=== PATIENT | male | born 1985 | race Caucasian/White ===

== ENCOUNTER 2018-11-05 06:57 | Emergency (ER) | payer SELFPAY ==
[~2018-11-05] VITALS: Ht 180.3 cm; Wt 90.7 kg
[2018-11-05 07:00] VITALS: BP 129/62
[2018-11-05] MEDS ORDERED: LIDOCAINE 1%/EPI 1:100,000 20 ML VIAL. INJ ONE (07:30)
[2018-11-05] MEDS ORDERED: DIPHTH,PERTUSS(ACELL),TET TOX 0.5 ML DISP.SYRIN. VAX IM ONE (07:30)
--- NOTE | 2018-11-05 07:40 | PHYS DOC ---
Past Medical History Past Medical History: No Pertinent History Past Surgical History: No Surgical History Alcohol Use: Occasionally Drug Use: None Adult General Chief Complaint Chief Complaint: ANIMAL BITE HPI HPI Patient is a 32 year old male who presents with dog bite to the face. As was the patient's dog who had gotten into trouble and so reacted when being punished. Patient reports that the dog's vaccines are up-to-date. Patient is uncertain as to when his last tetanus vaccine was. Patient was bitten on the face. This happened approximately 6 AM this morning. No loss of consciousness. No difficulty breathing. Direct pressure made the bleeding better. Pain is mild to moderate in intensity. [] Review of Systems Review of Systems Constitutional: Denies fever or chills [] Eyes: Denies change in visual acuity, redness, or eye pain [] HENT: Denies nasal congestion or sore throat [] Respiratory: Denies cough or shortness of breath [] Cardiovascular: No chest pain or palpitations[] GI: Denies abdominal pain, nausea, vomiting, bloody stools or diarrhea [] : Denies dysuria or hematuria [] Musculoskeletal: Denies back pain or joint pain [] Integument: Denies rash or skin lesions beyond the dog bites noted in the history of present illness[] Neurologic: Denies headache, focal weakness or sensory changes [] Endocrine: Denies polyuria or polydipsia [] All other systems were reviewed and found to be within normal limits, except as documented in this note. Current Medications Current Medications Current Medications Medications (Trade) Dose Ordered Sig/Juliana Start Time Stop Time Status Last Admin Dose Admin Diphtheria/ Tetanus/Acell Pertussis (Boostrix) 0.5 ml ONCE ONCE 11/05/18 07:30 11/05/18 07:31 DC 11/05/18 07:41 0.5 ML Lidocaine/ Epinephrine (LIDOCAINE 1%-EPI 1:100,000 Multi-Dose) 20 ml 1X ONCE 11/05/18 07:30 11/05/18 07:31 DC 11/05/18 07:49 20 ML Allergies Allergies Allergies Coded Allergies Type Severity Reaction Last Updated Verified No Known Drug Allergies 11/05/18 No Physical Exam Physical Exam Constitutional: Well developed, well nourished, no acute distress, non-toxic appearance. [] HENT: Normocephalic, dog bite to patient's face below his lower lip, approximately 2.5 cm in length. There is a small, appears to be a puncture wound inside patient's mouth, 1-2 mm in size. No foreign body identified. There is a second laceration/bite to the patient's right chin region that is curved. No foreign body identified. No exposure of muscle, neuro, or vascular structures. Bilateral external ears normal, oropharynx moist, no oral exudates, nose normal. [] Eyes: PERRLA, EOMI, conjunctiva normal, no discharge. [] Neck: Normal range of motion, no tenderness, supple, no stridor. [] Cardiovascular:Heart rate regular rhythm, no murmur [] Lungs & Thorax: Bilateral breath sounds clear to auscultation [] Abdomen: Bowel sounds normal, soft, no tenderness, no masses, no pulsatile masses. [] Skin: Warm, dry, no erythema, no rash. See wounds noted in the HEENT examination infection above[] Back: No tenderness, no CVA tenderness. [] Extremities: No tenderness, no cyanosis, no clubbing, ROM intact, no edema. [] Neurologic: Alert and oriented X 3, normal motor function, normal sensory function, no focal deficits noted. [] Psychologic: Affect normal, judgement normal, mood normal. [] Current Patient Data Vital Signs Vital Signs Date Time Temp Pulse Resp B/P (MAP) Pulse Ox O2 Delivery O2 Flow Rate FiO2 11/05/18 07:00 98.5 77 16 129/62 (84) 99 Room Air 98.5 EKG EKG [] Radiology/Procedures Radiology/Procedures [] Course & Med Decision Making Course & Med Decision Making Pertinent Labs and Imaging studies reviewed. (See chart for details) [] Dragon Disclaimer Dragon Disclaimer This electronic medical record was generated, in whole or in part, using a voice recognition dictation system. Departure Departure Impression: Primary Impression: Dog bite Disposition: 01 HOME, SELF-CARE Condition: IMPROVED Referrals: NO PCP (PCP) Patient Instructions: Animal Bite, Sutured Wound Care Additional Instructions: Sutures out in 5 days for the chin laceration, 5-7 days for the chin laceration. Have a wound check by her primary care physician in 2 days. If you do not have a primary care physician a list of local clinics will be provided for you. Return to the ER if purulent drainage, you develop a fever, significant redness around the wound, or any other concerns. Scripts Amoxicillin/Potassium Clav (AUGMENTIN 875-125 TABLET) 1 Each Tablet 1 TAB PO BID, #14 TAB Prov: DAISY KIM DO 11/05/18 Laceration Repair Lac Repair Indication: Dog bite to face and chin [] Procedure: The patient was placed in the appropriate position and anesthesia around the [LACS WERE] [1% lidocaine with epi]. The area was then [rushed with soap and water]. The laceration was [closed below the lower lip with 3, 6-0 nylon simple interrupted sutures]. [The lack on the chin was closed with 7, 6-0 nylon simple interrupted sutures] . Total repaired wound length: [The laceration below the chin was 2 cm long, the chin laceration was 4 cm long]. Other Items: [Wounds were inspected to the base, no foreign body identified. The inside the mouth wound on the buccal surface was a puncture wound, 1 mm in size] The patient tolerated the procedure well]. Complications: Complications, hemostasis was achieved. Problem Qualifiers Primary Impression: Dog bite Encounter type: initial encounter Qualified Codes: W54.0XXA - Bitten by dog , initial encounter TAD KIMKIARA GOMEZ Nov 05, 2018 07:40
[2018-11-05] MEDS ORDERED: AMOX1TAB61 PO (08:28)
== END 2018-11-05 08:40 | disposition home or self-care (01) ==
LOC: ER 06:57
DX: S01.81XA Laceration without foreign body of other part of head, initial encounter (principal); W54.0XXA Bitten by dog, initial encounter; Y93.89 Activity, other specified; Y92.89 Other specified places as the place of occurrence of the external cause; Y99.8 Other external cause status
CPT/HCPCS: 12013; 90471; 90715; 99284; J3490